=== PATIENT | female | born 1985 | race Caucasian/White ===

== ENCOUNTER 2025-05-16 12:18 | Emergency (ER) | payer BC, MEDICAID ==
[2025-05-16 12:21] VITALS: BP 121/81; PULSE 95
[2025-05-16] MEDS: Ondansetron 4 MG/2 ML SDV IVPUSH PRN (12:34)
[2025-05-16 12:58] LABS: BASOPHILS ABSOLUTE AUTO 0.03 10^3/uL (0.00-0.50); BASOPHILS PERCENT AUTO 0.3 % (0-1); EOSINOPHILS ABSOLUTE AUTO 0.07 10^3/uL (0.00-1.50); EOSINOPHILS PERCENT AUTO 0.7 % (0-6); IMMATURE GRAN ABSOLUTE AUTO 0.02 10^3/uL (0.00-0.49); IMMATURE GRAN PERCENT AUTO 0.2 % (0.0-4.9); LYMPHOCYTES ABSOLUTE AUTO 2.50 10^3/uL (0.60-5.00); LYMPHOCYTES PERCENT AUTO 23.8 % (24-44); MONOCYTES ABSOLUTE AUTO 0.81 10^3/uL (0.00-1.50); MONOCYTES PERCENT AUTO 7.7 % (0-10); NEUTROPHILS ABSOLUTE AUTO 7.08 x10^3/uL (1.80-8.00); NEUTROPHILS PERCENT AUTO 67.3 % (41-71); PLATELET COUNT,PLT 390 10^3/uL (150-400); RED BLOOD CELL COUNT 4.37 x10^6/uL (4.00-5.50); WHITE BLOOD CELL COUNT,WBC 10.5 10^3/uL (4.0-11.0)
[2025-05-16 13:11] LABS: ALANINE AMINOTRANSFERASE,ALT 36.0 U/L (12-78); ASPARTATE AMNIOTRANSFERASE,AST 19.0 U/L (15-37); BILIRUBIN TOTAL 0.3 mg/dL (0.0-1.0); BLOOD UREA NITROGEN,BUN 13.0 mg/dL (7-18); CARBON DIOXIDE,CO2 28.0 mmol/L (21-32); CHLORIDE,CL 100.0 mEq/L (98-106); CREATININE 0.7 mg/dL (0.6-1.0); EST CRCL DRUG DOSING (CG) 90.14 mL/min; GLUCOSE RANDOM 95.0 mg/dL (75-99); POTASSIUM,K 4.1 mEq/L (3.5-5.0); PROTEIN TOTAL,TP 7.5 g/dL (6.4-8.2); SODIUM,NA 139.0 mEq/L (136-145)
[2025-05-16 13:12] LABS: ESTIMATED GFR 113.0 mL/min (>=60)
[2025-05-16 13:38] LABS: APPEARANCE,URINE CLEAR (CLEAR); GLUCOSE,URINE NEGATIVE (NEGATIVE); OCCULT BLOOD,URINE NEGATIVE (NEGATIVE)
[2025-05-16 13:41] LABS: AMPHETAMINES,URINE NEGATIVE (NEGATIVE); BARBITURATES,URINE NEGATIVE (NEGATIVE); MDMA (ECSTASY), URINE NEGATIVE (NEGATIVE); METHAMPHETAMINES,URINE NEGATIVE (NEGATIVE); OPIATES,URINE NEGATIVE (NEGATIVE); OXYCODONE,URINE NEGATIVE (NEGATIVE); PHENCYCLIDINE,URINE NEGATIVE (NEGATIVE); TCA,URINE NEGATIVE (NEGATIVE)
== END 2025-05-16 14:15 | disposition home or self-care (01) ==
LOC: CC.ED 12:18
DX: R55 Syncope and collapse (principal); R56.9 Unspecified convulsions; M54.50 Low back pain, unspecified; G89.29 Other chronic pain; T44.6X5A Adverse effect of alpha-adrenoreceptor antagonists, initial encounter; E11.9 Type 2 diabetes mellitus without complications; E66.9 Obesity, unspecified; Z68.35 Body mass index [BMI] 35.0-35.9, adult; Z88.2 Allergy status to sulfonamides; Z88.5 Allergy status to narcotic agent; Z91.018 Allergy to other foods
CPT/HCPCS: 36415; 80053; 80305; 81003; 85025; 86140; 96361; 96374; 99284; J2405; J7030

== ENCOUNTER 2025-06-04 19:43 | Emergency (ER) | payer BC, MEDICAID, OTHER ==
[2025-06-04] MEDS: Ondansetron 4 MG Tab.DIS PO ONE (20:12)
[2025-06-04 21:09] LABS: BASOPHILS ABSOLUTE AUTO 0.03 10^3/uL (0.00-0.50); BASOPHILS PERCENT AUTO 0.2 % (0-1); EOSINOPHILS ABSOLUTE AUTO 0.09 10^3/uL (0.00-1.50); EOSINOPHILS PERCENT AUTO 0.7 % (0-6); IMMATURE GRAN ABSOLUTE AUTO 0.05 10^3/uL (0.00-0.49); IMMATURE GRAN PERCENT AUTO 0.4 % (0.0-4.9); LYMPHOCYTES ABSOLUTE AUTO 2.46 10^3/uL (0.60-5.00); LYMPHOCYTES PERCENT AUTO 18.1 % (24-44); MONOCYTES ABSOLUTE AUTO 0.69 10^3/uL (0.00-1.50); MONOCYTES PERCENT AUTO 5.1 % (0-10); NEUTROPHILS ABSOLUTE AUTO 10.29 x10^3/uL (1.80-8.00); NEUTROPHILS PERCENT AUTO 75.5 % (41-71); PLATELET COUNT,PLT 342 10^3/uL (150-400); RED BLOOD CELL COUNT 4.23 x10^6/uL (4.00-5.50); WHITE BLOOD CELL COUNT,WBC 13.6 10^3/uL (4.0-11.0)
[2025-06-04 21:15] LABS: GLUCOSE,URINE NEGATIVE (NEGATIVE); OCCULT BLOOD,URINE NEGATIVE (NEGATIVE)
[2025-06-04 21:19] VITALS: PULSE 86
[2025-06-04 21:19] LABS: MDMA (ECSTASY), URINE NEGATIVE (NEGATIVE); METHAMPHETAMINES,URINE NEGATIVE (NEGATIVE); OPIATES,URINE POSITIVE (NEGATIVE); TCA,URINE POSITIVE (NEGATIVE)
[2025-06-04 21:20] LABS: AMPHETAMINES,URINE NEGATIVE (NEGATIVE); APPEARANCE,URINE SLIGHTLY CLOUDY (CLEAR); BARBITURATES,URINE NEGATIVE (NEGATIVE); OXYCODONE,URINE NEGATIVE (NEGATIVE); PHENCYCLIDINE,URINE NEGATIVE (NEGATIVE)
[2025-06-04 21:22] LABS: ALANINE AMINOTRANSFERASE,ALT 65.0 U/L (12-78); ASPARTATE AMNIOTRANSFERASE,AST 32.0 U/L (15-37); BILIRUBIN TOTAL 0.4 mg/dL (0.0-1.0); BLOOD UREA NITROGEN,BUN 17.0 mg/dL (7-18); CARBON DIOXIDE,CO2 29.0 mmol/L (21-32); CHLORIDE,CL 100.0 mEq/L (98-106); CREATININE 0.7 mg/dL (0.6-1.0); EST CRCL DRUG DOSING (CG) 90.14 mL/min; ESTIMATED GFR 113.0 mL/min (>=60); GLUCOSE RANDOM 99.0 mg/dL (75-99); POTASSIUM,K 3.8 mEq/L (3.5-5.0); PROTEIN TOTAL,TP 7.3 g/dL (6.4-8.2); SODIUM,NA 139.0 mEq/L (136-145)
[2025-06-04 21:22] LABS: EPITHELIAL CELLS,URINE MODERATE /HPF (NOT SEEN)
[2025-06-04 22:29] VITALS: BP 122/60
== END 2025-06-04 22:31 | disposition home or self-care (01) ==
LOC: CC.ED 19:43
DX: S00.31XA Abrasion of nose, initial encounter (principal); K21.9 Gastro-esophageal reflux disease without esophagitis; Z88.2 Allergy status to sulfonamides; Z88.5 Allergy status to narcotic agent; Z88.8 Allergy status to other drugs, medicaments and biological substances; Z79.899 Other long term (current) drug therapy; Y04.8XXA Assault by other bodily force, initial encounter; Y93.89 Activity, other specified
CPT/HCPCS: 36415; 70450; 72125; 80053; 80305-QW; 81001; 85025; 86140; 99284; A9270-GY

== ENCOUNTER 2025-06-20 10:30 | Emergency (ER) | payer BC, MEDICAID ==
[2025-06-20 11:30] LABS: BASOPHILS ABSOLUTE AUTO 0.03 10^3/uL (0.00-0.50); BASOPHILS PERCENT AUTO 0.3 % (0-1); EOSINOPHILS ABSOLUTE AUTO 0.10 10^3/uL (0.00-1.50); EOSINOPHILS PERCENT AUTO 1.0 % (0-6); IMMATURE GRAN ABSOLUTE AUTO 0.01 10^3/uL (0.00-0.49); IMMATURE GRAN PERCENT AUTO 0.1 % (0.0-4.9); LYMPHOCYTES ABSOLUTE AUTO 2.18 10^3/uL (0.60-5.00); LYMPHOCYTES PERCENT AUTO 21.5 % (24-44); MONOCYTES ABSOLUTE AUTO 0.77 10^3/uL (0.00-1.50); MONOCYTES PERCENT AUTO 7.6 % (0-10); NEUTROPHILS ABSOLUTE AUTO 7.07 x10^3/uL (1.80-8.00); NEUTROPHILS PERCENT AUTO 69.5 % (41-71); PLATELET COUNT,PLT 403 10^3/uL (150-400); RED BLOOD CELL COUNT 4.17 x10^6/uL (4.00-5.50); WHITE BLOOD CELL COUNT,WBC 10.2 10^3/uL (4.0-11.0)
[2025-06-20] MEDS: Ondansetron 4 MG/2 ML SDV IVPUSH STA (11:30)
[2025-06-20 11:35] LABS: APPEARANCE,URINE CLEAR (CLEAR); GLUCOSE,URINE NEGATIVE (NEGATIVE); OCCULT BLOOD,URINE NEGATIVE (NEGATIVE)
[2025-06-20 11:45] LABS: ALANINE AMINOTRANSFERASE,ALT 34 U/L (12-78); ASPARTATE AMNIOTRANSFERASE,AST 19 U/L (15-37); BILIRUBIN TOTAL 0.3 mg/dL (0.0-1.0); BLOOD UREA NITROGEN,BUN 12 mg/dL (7-18); CARBON DIOXIDE,CO2 32 mmol/L (21-32); CHLORIDE,CL 103 mEq/L (98-106); CREATININE 0.7 mg/dL (0.6-1.0); GLUCOSE RANDOM 89 mg/dL (75-99); POTASSIUM,K 3.9 mEq/L (3.5-5.0); PROTEIN TOTAL,TP 7.1 g/dL (6.4-8.2); SODIUM,NA 142 mEq/L (136-145)
[2025-06-20 11:48] LABS: ESTIMATED GFR 113 mL/min (>=60)
[2025-06-20] MEDS: Ketorolac 30 MG/ML SDV IVPUSH ONE (12:35)
[2025-06-20] MEDS: Promethazine 25 MG/ML SDV IM ONE (13:05)
[2025-06-20] MEDS: diphenhydrAMINE 50 MG/ML SDV IVPUSH ONE (13:06)
[2025-06-20 15:17] VITALS: BP 129/77; PULSE 88
== END 2025-06-20 13:20 | disposition home or self-care (01) ==
LOC: CC.ED 10:30
DX: R11.2 Nausea with vomiting, unspecified (principal); Z88.2 Allergy status to sulfonamides; Z88.5 Allergy status to narcotic agent; Z79.899 Other long term (current) drug therapy
CPT/HCPCS: 36415; 80053; 81003; 81025; 83735; 85025; 96361; 96372; 96374; 96375; 99283; 99284-25; J1200; J1885; J2405; J2550; J7030